=== PATIENT | male | born 1955 | race Caucasian/White ===

== ENCOUNTER 2018-06-25 08:26 | Emergency (ER) | payer BC, OTHER ==
[2018-06-25 08:47] LABS: BASOPHILS % (AUTO) 0.6 % (0.0-5.0); EOSINOPHILS % (AUTO) 5.3 % (0.0-8.0); LYMPHOCYTES % (AUTO) 26.5 % (21.0-51.0); MEAN CORPUSCULAR HEMOGLOBIN 31.4 pg (27.0-33.0); MEAN CORPUSCULAR HGB CONC 34.8 g/dL (32.0-36.0); MEAN CORPUSCULAR VOLUME 90.2 fL (79-99); NEUTROPHILS % (AUTO) 57.6 % (40.0-77.0); PLATELET COUNT (AUTO) 208 K/uL (130-400); RED BLOOD CELL COUNT(AUTO) 4.66 MIL/uL (4.50-6.20); WHITE BLOOD COUNT (AUTO) 6.1 K/uL (4.8-10.8)
[2018-06-25 08:59] LABS: CREATININE 0.8 mg/dL (0.5-1.5)
[2018-06-25 09:05] LABS: ALBUMIN 3.3 g/dL (3.5-5.0); BILIRUBIN,TOTAL 0.3 mg/dL (0.2-1.0); TOTAL PROTEIN, SERUM 6.9 g/dL (6.0-8.3)
[2018-06-25 09:10] LABS: INR 0.93 (0.85-1.15); PARTIAL THROMBOPLASTIN TIME 28.5 SEC (26.3-35.5); PROTHROMBIN TIME 9.8 SEC (9.6-11.6)
[2018-06-25 09:44] LABS: BILIRUBIN,URINE Negative (NEGATIVE); COLOR,URINE Yellow (YELLOW); GLUCOSE, URINE (UA) Negative (NEGATIVE); KETONES,URINE Negative (NEGATIVE); LEUKOCYTE ESTERASE ,URINE Trace (NEGATIVE); NITRATE,URINE Negative (NEGATIVE); OCCULT BLOOD,URINE Negative (NEGATIVE); PH,URINE 6.5 (5.0-8.0); PROTEIN,URINE Negative (NEGATIVE); UROBILINOGEN,URINE 0.2 mg/dL (0.2-1.0)
[2018-06-25] MEDS ORDERED: CYCLOBENZAPRINE HCL 10 MG TABLET ONE (09:45)
[2018-06-25 09:46] LABS: APPEARANCE,URINE CLEAR (CLEAR)
[2018-06-25 09:59] LABS: BACTERIA,URINE Rare /HPF (None Seen); RBC,URINE 0-1 /HPF (0-1); SQUAMOUS EPITHELIAL CELL,UR Rare /HPF (0-2); WBC,URINE 0-1 /HPF (0-1)
== END 2018-06-25 10:58 | disposition home or self-care (01) ==
LOC: EDH 08:26
DX: M25.531 Pain in right wrist (principal); I10 Essential (primary) hypertension; J45.909 Unspecified asthma, uncomplicated; Z88.0 Allergy status to penicillin; Z88.8 Allergy status to other drugs, medicaments and biological substances; Z87.891 Personal history of nicotine dependence
CPT/HCPCS: 29125; 36415; 71045; 73110; 80053; 81001; 82550; 84484; 85025; 85610; 85730; 93005

== ENCOUNTER 2019-04-09 09:03 | Emergency (ER) | payer OTHER ==
[2019-04-09 10:23] LABS: RAPID GROUP A STREP NEGATIVE (NEGATIVE)
[2019-04-09 10:27] LABS: BASOPHILS % (AUTO) 0.8 % (0.0-5.0); EOSINOPHILS % (AUTO) 5.7 % (0.0-8.0); HEMATOCRIT 44.7 % (42-54); LYMPHOCYTES % (AUTO) 25.5 % (21.0-51.0); MEAN CORPUSCULAR HEMOGLOBIN 29.8 pg (27.0-33.0); MEAN CORPUSCULAR HGB CONC 33.1 g/dL (32.0-36.0); MEAN CORPUSCULAR VOLUME 90.1 fL (79-99); MONOCYTES % (AUTO) 16.4 % (3.0-13.0); NEUTROPHILS % (AUTO) 51.4 % (40.0-77.0); PLATELET COUNT (AUTO) 201 K/uL (130-400); RED BLOOD CELL COUNT(AUTO) 4.96 MIL/uL (4.50-6.20); RED CELL DISTRIBUTION WIDTH 14.2 % (11.0-15.5); WHITE BLOOD COUNT (AUTO) 4.9 K/uL (4.8-10.8)
[2019-04-09 10:32] LABS: CREATININE 0.9 mg/dL (0.5-1.5); POTASSIUM 3.7 mmol/L (3.5-5.1)
[2019-04-09 11:42] LABS: BASOPHILS % (MANUAL) 2 % (0-2); EOSINOPHILS % (MANUAL) 7 % (1-6); LYMPHOCYTES % (MANUAL) 16 % (22-44); MAN.DIFF COMMENT-IMPRESSION MANUAL DIFFERENTIAL; MONOCYTES % (MANUAL) 12 % (2-9); PLATELET MORPHOLOGY COMMENT ADEQUATE; REACTIVE LYMPHOCYTES 16 % (0-0); SEGMENTED NEUTROPHILS % 47 % (40-70)
[2019-04-09] MEDS ORDERED: ONDANSETRON HCL 4 MG/2 ML VIAL IVP PRN (12:15)
[2019-04-09] MEDS ORDERED: SODIUM CHLORIDE 0.9% 1000ML 1,000 ML IV SCH (12:15)
[2019-04-09] MEDS ORDERED: COMPOUND PO MISCELLANEOUS 1 EACH MISC MISC PRN (12:15)
[2019-04-09] MEDS ORDERED: MAG HYDROX/AL HYDROX/SIMETH 30 ML, LIDOCAINE HCL 2% VISCOUS 30 ML, DIPHENHYDRAMINE HCL ... PO PRN ×3 (12:15)
== END 2019-04-09 11:11 | disposition home or self-care (01) ==
LOC: EDH 09:03
DX: J21.8 Acute bronchiolitis due to other specified organisms (principal); J45.909 Unspecified asthma, uncomplicated; I10 Essential (primary) hypertension; Z88.0 Allergy status to penicillin; Z88.8 Allergy status to other drugs, medicaments and biological substances; Z87.891 Personal history of nicotine dependence; Z79.899 Other long term (current) drug therapy; Z79.82 Long term (current) use of aspirin
CPT/HCPCS: 36415; 71046; 80048; 85025; 87804; 87880

== ENCOUNTER 2019-09-26 06:01 | Emergency (ER) | payer OTHER ==
[2019-09-26] MEDS ORDERED: ONDANSETRON HCL 4 MG/2 ML VIAL ONE (06:13)
[2019-09-26] MEDS ORDERED: SODIUM CHLORIDE 0.9% 1000ML 1,000 ML IV ONE (06:14)
[2019-09-26] MEDS ORDERED: FAMOTIDINE/PF 20 MG/2 ML VIAL IV ONE (06:14)
[2019-09-26] MEDS ORDERED: IOHEXOL-350 75 ML VIAL IV ONE (06:43)
== END 2019-09-26 08:00 | disposition home or self-care (01) ==
LOC: EDH 06:01
DX: K62.5 Hemorrhage of anus and rectum (principal); I10 Essential (primary) hypertension; R11.2 Nausea with vomiting, unspecified; R10.13 Epigastric pain; R10.11 Right upper quadrant pain; J45.909 Unspecified asthma, uncomplicated; Z88.0 Allergy status to penicillin; Z91.030 Bee allergy status
CPT/HCPCS: 36415; 71045; 74177; 80053; 81003; 82270; 82550; 83605; 83690; 84484; 85025; 85610; 85730; 86850; 86900; 86901; 93005; 96361; 96374; 96375; 99285; J2405; J3490; J7030; Q9967

== ENCOUNTER 2020-06-16 10:14 | Emergency (ER) | payer OTHER ==
[2020-06-16] MEDS ORDERED: KETOROLAC 30MG VIAL (30MG/ML) ONE (10:42)
[2020-06-16] MEDS ORDERED: ORPHENADRINE CITRATE 30 MG/ML ML ONE (10:42)
[2020-12-02] MEDS ORDERED: CYCL10TA16 PO (12:53)
== END 2020-06-16 11:26 | disposition home or self-care (01) ==
LOC: EDH 10:14
DX: S39.012A Strain of muscle, fascia and tendon of lower back, initial encounter (principal); S46.912A Strain of unspecified muscle, fascia and tendon at shoulder and upper arm level, left arm, initial encounter; J45.909 Unspecified asthma, uncomplicated; I10 Essential (primary) hypertension; Z88.0 Allergy status to penicillin; Z91.030 Bee allergy status; Z88.8 Allergy status to other drugs, medicaments and biological substances; X58.XXXA Exposure to other specified factors, initial encounter; Y93.I9 Activity, other involving external motion; Y92.810 Car as the place of occurrence of the external cause; Y99.8 Other external cause status
CPT/HCPCS: 72100; 73030; 96372 ×2; 99284; J1885; J2360

== ENCOUNTER 2020-08-11 14:14 | Emergency (ER) | payer OTHER ==
[2020-08-11] MEDS ORDERED: 0.9% NACL 500ML IV.SOLN 500 ML IV ONE (15:08)
[2020-08-11] MEDS ORDERED: KETOROLAC 30MG VIAL (30MG/ML) ONE (15:08)
[2020-08-11 15:25] LABS: APPEARANCE,URINE Clear (CLEAR); BILIRUBIN,URINE Negative (NEGATIVE); COLOR,URINE Yellow (YELLOW); GLUCOSE, URINE (UA) Negative (NEGATIVE); KETONES,URINE Negative (NEGATIVE); LEUKOCYTE ESTERASE ,URINE Trace (NEGATIVE); NITRATE,URINE Negative (NEGATIVE); OCCULT BLOOD,URINE Negative (NEGATIVE); PH,URINE 6.5 (5.0-8.0); PROTEIN,URINE Negative (NEGATIVE); UROBILINOGEN,URINE 0.2 mg/dL (0.2-1.0)
[2020-08-11 15:30] LABS: BASOPHILS % (AUTO) 0.9 % (0.0-5.0); EOSINOPHILS % (AUTO) 6.7 % (0.0-8.0); HEMATOCRIT 43.2 % (42-54); LYMPHOCYTES % (AUTO) 30.3 % (21.0-51.0); MEAN CORPUSCULAR HEMOGLOBIN 29.8 pg (27.0-33.0); MEAN CORPUSCULAR HGB CONC 32.6 g/dL (32.0-36.0); MEAN CORPUSCULAR VOLUME 91.3 fL (79-99); MONOCYTES % (AUTO) 13.1 % (3.0-13.0); NEUTROPHILS % (AUTO) 48.8 % (40.0-77.0); PLATELET COUNT (AUTO) 222 K/uL (130-400); RED BLOOD CELL COUNT(AUTO) 4.73 MIL/uL (4.50-6.20); RED CELL DISTRIBUTION WIDTH 13.7 % (11.0-15.5); WHITE BLOOD COUNT (AUTO) 6.6 K/uL (4.8-10.8)
[2020-08-11 15:40] LABS: BACTERIA,URINE Rare /HPF (None Seen); RBC,URINE 0-1 /HPF (0-1); SQUAMOUS EPITHELIAL CELL,UR Rare /HPF (0-2)
[2020-08-11 15:40] LABS: INR 0.96 (0.85-1.15); PROTHROMBIN TIME 10.5 SEC (9.6-11.6)
[2020-08-11 15:41] LABS: PARTIAL THROMBOPLASTIN TIME 26.3 SEC (26.3-35.5)
[2020-08-11 15:43] LABS: ALBUMIN 3.4 g/dL (3.5-5.0); BILIRUBIN,TOTAL 0.5 mg/dL (0.2-1.0); POTASSIUM 4.1 mmol/L (3.5-5.1); TOTAL PROTEIN, SERUM 6.8 g/dL (6.0-8.3)
[2020-08-11] MEDS ORDERED: HYDROCODONE/ACETAMINOPHEN 5/325 MG TAB ONE (15:59)
[2020-12-02] MEDS ORDERED: CYCL10TA16 PO (12:53)
== END 2020-08-11 16:33 | disposition home or self-care (01) ==
LOC: EDH 14:14
DX: S39.011A Strain of muscle, fascia and tendon of abdomen, initial encounter (principal); S39.012A Strain of muscle, fascia and tendon of lower back, initial encounter; I10 Essential (primary) hypertension; J45.909 Unspecified asthma, uncomplicated; Z91.030 Bee allergy status; Z88.8 Allergy status to other drugs, medicaments and biological substances; Z88.0 Allergy status to penicillin; X58.XXXA Exposure to other specified factors, initial encounter; Y93.89 Activity, other specified; Y92.89 Other specified places as the place of occurrence of the external cause; Y99.8 Other external cause status
CPT/HCPCS: 36415; 74176; 80053; 81001; 83690; 84484; 85025; 85610; 85730; 93005; 96361; 96374; 99285; J1885; J7040

== ENCOUNTER 2020-10-14 10:21 | Emergency (ER) | payer OTHER ==
[~2020-10-14] VITALS: Ht 180.3 cm; Wt 131.1 kg
[2020-10-14 10:23] VITALS: BP 134/68
[2020-10-14] MEDS ORDERED: ONDANSETRON 4MG INJ IVP SCH (11:00)
[2020-10-14] MEDS ORDERED: KETOROLAC 30MG VIAL (30MG/ML) IVP SCH (11:00)
[2020-10-14 11:04] LABS: BASOPHILS % (AUTO) 0.8 % (0.0-5.0); EOSINOPHILS % (AUTO) 6.4 % (0.0-8.0); HEMATOCRIT 40.2 % (42-54); LYMPHOCYTES % (AUTO) 19.3 % (21.0-51.0); MEAN CORPUSCULAR HGB CONC 33.6 g/dL (32.0-36.0); MEAN CORPUSCULAR VOLUME 92.2 fL (79-99); MONOCYTES % (AUTO) 8.5 % (3.0-13.0); NEUTROPHILS % (AUTO) 64.5 % (40.0-77.0); PLATELET COUNT (AUTO) 200 K/uL (130-400); RED BLOOD CELL COUNT(AUTO) 4.36 MIL/uL (4.50-6.20); RED CELL DISTRIBUTION WIDTH 14.2 % (11.0-15.5); WHITE BLOOD COUNT (AUTO) 7.5 K/uL (4.8-10.8)
[2020-10-14 11:15] LABS: CREATININE 0.9 mg/dL (0.5-1.5); POTASSIUM 4.5 mmol/L (3.5-5.1)
[2020-10-14 11:19] LABS: ALBUMIN 3.3 g/dL (3.5-5.0); BILIRUBIN,TOTAL 0.3 mg/dL (0.2-1.0); TOTAL PROTEIN, SERUM 6.8 g/dL (6.0-8.3)
[2020-10-14 11:36] VITALS: BP 121/67
[2020-10-14 11:53] LABS: APPEARANCE,URINE Clear (CLEAR); BILIRUBIN,URINE Negative (NEGATIVE); COLOR,URINE Yellow (YELLOW); GLUCOSE, URINE (UA) Negative (NEGATIVE); KETONES,URINE Negative (NEGATIVE); LEUKOCYTE ESTERASE ,URINE Small (NEGATIVE); NITRATE,URINE Negative (NEGATIVE); OCCULT BLOOD,URINE Negative (NEGATIVE); PH,URINE 5.5 (5.0-8.0); PROTEIN,URINE Negative (NEGATIVE); UROBILINOGEN,URINE 0.2 mg/dL (0.2-1.0)
[2020-10-14 12:05] LABS: BACTERIA,URINE Rare /HPF (None Seen); RBC,URINE 0-1 /HPF (0-1); SQUAMOUS EPITHELIAL CELL,UR Rare /HPF (0-2)
[2020-10-14] MEDS ORDERED: DICY20TA2 PO (13:59)
[2020-10-14] MEDS ORDERED: ONDA4TAB4 PO (13:59)
[2020-10-14 14:07] VITALS: BP 121/67
== END 2020-10-14 14:24 | disposition home or self-care (01) ==
LOC: EDH 10:21
DX: R10.31 Right lower quadrant pain (principal); R11.2 Nausea with vomiting, unspecified; I10 Essential (primary) hypertension; J45.909 Unspecified asthma, uncomplicated; Z88.0 Allergy status to penicillin; Z91.030 Bee allergy status; Z79.899 Other long term (current) drug therapy
CPT/HCPCS: 36415; 74176; 76705; 80053; 81001; 82150; 83690; 85025; 87088; 96374; 96375; 99285; J1885; J2405

== ENCOUNTER 2020-11-20 16:02 | Emergency (ER) | payer OTHER ==
[~2020-11-20] VITALS: Ht 177.8 cm; Wt 129.3 kg
[~2020-11-20 16:02] MED LIST: DICY20TA2 PO; ONDA4TAB4 PO
[2020-11-20 18:13] VITALS: BP 145/74
[2020-11-20] MEDS ORDERED: ONDANSETRON 4MG INJ IVP ONE (19:00)
[2020-11-20] MEDS ORDERED: MORPHINE 2 MG SYG IVP ONE (19:00)
[2020-11-20 19:07] VITALS: BP 105/51
[2020-11-20 19:10] LABS: APPEARANCE,URINE Clear (CLEAR); BILIRUBIN,URINE Negative (NEGATIVE); COLOR,URINE Dark Yellow (YELLOW); GLUCOSE, URINE (UA) Negative (NEGATIVE); KETONES,URINE Trace mg/dL (NEGATIVE); LEUKOCYTE ESTERASE ,URINE Negative (NEGATIVE); NITRATE,URINE Negative (NEGATIVE); OCCULT BLOOD,URINE Negative (NEGATIVE); PROTEIN,URINE Negative (NEGATIVE)
[2020-11-20 19:50] LABS: BASOPHILS % (AUTO) 0.7 % (0.0-5.0); EOSINOPHILS % (AUTO) 5.6 % (0.0-8.0); HEMATOCRIT 41.3 % (42-54); LYMPHOCYTES % (AUTO) 25.6 % (21.0-51.0); MEAN CORPUSCULAR HEMOGLOBIN 30.6 pg (27.0-33.0); MEAN CORPUSCULAR HGB CONC 33.4 g/dL (32.0-36.0); MEAN CORPUSCULAR VOLUME 91.6 fL (79-99); MONOCYTES % (AUTO) 9.4 % (3.0-13.0); NEUTROPHILS % (AUTO) 57.9 % (40.0-77.0); PLATELET COUNT (AUTO) 228 K/uL (130-400); RED BLOOD CELL COUNT(AUTO) 4.51 MIL/uL (4.50-6.20); RED CELL DISTRIBUTION WIDTH 14.6 % (11.0-15.5)
[2020-11-20 20:08] LABS: CARBON DIOXIDE 28 mmol/L (21-32); CHLORIDE 105 mmol/L (101-111); GLOMERULAR FILTR. RATE CALC 80 mL/min (>60); GLUCOSE,RANDOM 92 mg/dL (70-105); SODIUM SERUM 142 mmol/L (136-145); UREA NITROGEN, BLOOD 22 mg/dL (7-18)
[2020-11-20 20:12] LABS: ALANINE AMINOTRANSFERASE 36 U/L (12-78); ALBUMIN 3.4 g/dL (3.5-5.0); AMYLASE 33 U/L (25-115); ASPARTATE AMINOTRANSFERASE 21 U/L (10-37); BILIRUBIN,TOTAL 0.6 mg/dL (0.2-1.0); CREATINE KINASE, TOTAL 149 U/L (21-232); TOTAL PROTEIN, SERUM 6.5 g/dL (6.0-8.3)
[2020-11-20 20:14] LABS: LIPASE < 50 U/L (114-286)
[2020-11-20 20:48] VITALS: BP 104/41
== END 2020-11-20 21:06 | disposition home or self-care (01) ==
LOC: EDH 16:02
DX: K40.90 Unilateral inguinal hernia, without obstruction or gangrene, not specified as recurrent (principal); R20.2 Paresthesia of skin; M54.9 Dorsalgia, unspecified; E78.00 Pure hypercholesterolemia, unspecified; I10 Essential (primary) hypertension; Z88.0 Allergy status to penicillin; Z79.899 Other long term (current) drug therapy
CPT/HCPCS: 36415; 74176; 80053; 81003; 82150; 82550; 83690; 84484; 85025; 93005; 93925; 93970; 96374; 96375; 99285; J2405

== ENCOUNTER 2020-12-02 12:08 | Emergency (ER) | payer OTHER ==
[~2020-12-02] VITALS: Ht 180.3 cm; Wt 127.5 kg
[2020-12-02] MEDS ORDERED: CYCL10 PO (12:53)
[2020-12-02] MEDS ORDERED: NAPR-1180 PO (12:53)
[2020-12-02] MEDS ORDERED: DIAZEPAM 5 MG TABLET PO ONE (13:00)
[2020-12-02 13:29] VITALS: BP 146/84
== END 2020-12-02 13:33 | disposition home or self-care (01) ==
LOC: EDH 12:08
DX: M54.42 Lumbago with sciatica, left side (principal); M54.41 Lumbago with sciatica, right side; R20.0 Anesthesia of skin; I10 Essential (primary) hypertension; E78.00 Pure hypercholesterolemia, unspecified; J45.909 Unspecified asthma, uncomplicated; Z98.890 Other specified postprocedural states; Z79.899 Other long term (current) drug therapy; Z88.0 Allergy status to penicillin; Z88.5 Allergy status to narcotic agent; Z91.030 Bee allergy status

== ENCOUNTER 2021-05-06 21:25 | Emergency (ER) | payer MEDICARE, OTHER ==
[~2021-05-06] VITALS: Ht 180.3 cm; Wt 88.0 kg
[2021-05-06] MEDS: KETOROLAC 30MG VIAL (30MG/ML) IV ONE
[~2021-05-06 21:25] MED LIST changes: +CYCL10TA16 PO; +NAPR-1180 PO
[2021-05-06 21:51] LABS: BASOPHILS % (AUTO) 0.8 % (0.0-5.0); EOSINOPHILS % (AUTO) 13.3 % (0.0-8.0); HEMATOCRIT 42.6 % (42-54); LYMPHOCYTES % (AUTO) 22.9 % (21.0-51.0); MEAN CORPUSCULAR HEMOGLOBIN 30.4 pg (27.0-33.0); MEAN CORPUSCULAR HGB CONC 33.8 g/dL (32.0-36.0); MEAN CORPUSCULAR VOLUME 89.9 fL (79-99); MONOCYTES % (AUTO) 9.4 % (3.0-13.0); NEUTROPHILS % (AUTO) 53.1 % (40.0-77.0); PLATELET COUNT (AUTO) 207 K/uL (130-400); RED BLOOD CELL COUNT(AUTO) 4.74 MIL/uL (4.50-6.20); RED CELL DISTRIBUTION WIDTH 13.7 % (11.0-15.5); WHITE BLOOD COUNT (AUTO) 9.6 K/uL (4.8-10.8)
[2021-05-06 22:00] LABS: POTASSIUM 3.9 mmol/L (3.5-5.1)
[2021-05-06 22:05] LABS: ALBUMIN 3.3 g/dL (3.5-5.0); BILIRUBIN,TOTAL 0.3 mg/dL (0.2-1.0); TOTAL PROTEIN, SERUM 6.9 g/dL (6.0-8.3)
[2021-05-07] MEDS: KETOROLAC 30MG VIAL (30MG/ML) ONE (00:19)
[2021-05-07 03:00] VITALS: BP 119/83
== END 2021-05-07 03:10 | disposition home or self-care (01) ==
LOC: EDH 21:25
DX: R07.89 Other chest pain (principal); R06.02 Shortness of breath; R11.0 Nausea; Z88.0 Allergy status to penicillin; I10 Essential (primary) hypertension; J44.9 Chronic obstructive pulmonary disease, unspecified; G47.30 Sleep apnea, unspecified; Z79.1 Long term (current) use of non-steroidal anti-inflammatories (NSAID); Z79.899 Other long term (current) drug therapy
CPT/HCPCS: 36415; 71045; 80053; 84484 ×2; 85025; 93005; 96374; 99285; J1885

== ENCOUNTER 2024-01-04 10:06 | Inpatient (IN) | payer MEDICARE ==
[~2024-01-04] VITALS: Ht 180.3 cm; Wt 128.4 kg
[2024-01-04 10:55] LABS: RAPID GROUP A STREP negative (NEGATIVE)
[2024-01-04 11:05] LABS: INFLUENZA TYPE A Negative For Type A (NEGATIVE); INFLUENZA TYPE B Negative For Type B (NEGATIVE)
[2024-01-04 11:07] LABS: COVID19 (SARS ANTIGEN RAPID) POSITIVE FOR SARS AG (NEGATIVE)
[2024-01-04 12:11] LABS: BASOPHILS # (AUTO) 0.04 K/uL (0.00-0.20); BASOPHILS % (AUTO) 0.6 % (0.0-5.0); EOSINOPHILS # (AUTO) 0.02 K/uL (0.00-0.70); EOSINOPHILS % (AUTO) 0.3 % (0.0-8.0); HEMATOCRIT 43.3 % (42-54); IMMATURE GRANULOCYTE ABSOLUTE 0.06 K/uL (0-1); LYMPHOCYTES # (AUTO) 1.2 K/uL (1.0-4.8); LYMPHOCYTES % (AUTO) 17.3 % (21.0-51.0); MEAN CORPUSCULAR HEMOGLOBIN 31.1 pg (27.0-33.0); MEAN CORPUSCULAR HGB CONC 33.7 g/dL (32.0-36.0); MEAN CORPUSCULAR VOLUME 92.1 fL (79-99); MONOCYTES % (AUTO) 14.3 % (3.0-13.0); NEUTROPHILS # (AUTO) 4.7 K/uL (1.8-7.7); NEUTROPHILS % (AUTO) 66.7 % (40.0-77.0); PLATELET COUNT (AUTO) 190 K/uL (130-400); RED CELL DISTRIBUTION WIDTH 15.1 % (11.0-15.5); WHITE BLOOD COUNT (AUTO) 7.1 K/uL (4.8-10.8)
[2024-01-04 12:19] LABS: CREATININE 1.6 mg/dL (0.5-1.3); POTASSIUM 3.1 mmol/L (3.5-5.1)
[2024-01-04 12:42] LABS: B-TYPE NATRIURETIC PEPTIDE 65 pg/mL (0-100)
[2024-01-04] MEDS: PoTASSium BIcarbonate/CIT AC 25 MEQ TABLET.EFF PO STA (13:22)
[2024-01-05] VITALS (15 sets, daily range): BP systolic 100–132; BP diastolic 60–79; PULSE 50–97; RESP 18–21; TEMP 97.6–98.7; O2SAT 95–98
[2024-01-05] MEDS ORDERED: PoTASSium chl 10% ELIXIR 20MEQ 20 MEQ/15 ML UDCUP PO PRN
[2024-01-05] MEDS ORDERED: MAGNESIUM 2GM PREMIX 50ML 50 ML IV PRN
[2024-01-05] MEDS ORDERED: ondanSETRON 4MG INJ IV PRN
[2024-01-05] MEDS ORDERED: PoTASSium chloRIDE 20MEQ/100ML 100 ML IV PRN
[2024-01-05] MEDS: 0.9%NACL 1000ML 1,000 ML IV SCH (00:18)
[2024-01-05] MEDS: IpraTROPium/alBUTERol SULFATE 3 ML SOLUTION IH SCH (02:15)
[2024-01-05 06:46] LABS: BASOPHILS # (AUTO) 0.03 K/uL (0.00-0.20); BASOPHILS % (AUTO) 0.6 % (0.0-5.0); EOSINOPHILS # (AUTO) 0.14 K/uL (0.00-0.70); EOSINOPHILS % (AUTO) 2.9 % (0.0-8.0); HEMATOCRIT 42.6 % (42-54); IMMATURE GRANULOCYTE ABSOLUTE 0.03 K/uL (0-1); LYMPHOCYTES # (AUTO) 1.1 K/uL (1.0-4.8); LYMPHOCYTES % (AUTO) 23.6 % (21.0-51.0); MEAN CORPUSCULAR HEMOGLOBIN 31.6 pg (27.0-33.0); MEAN CORPUSCULAR HGB CONC 32.9 g/dL (32.0-36.0); MEAN CORPUSCULAR VOLUME 96.2 fL (79-99); MONOCYTES # (AUTO) 0.7 K/uL (0.1-1.0); MONOCYTES % (AUTO) 15.3 % (3.0-13.0); NEUTROPHILS # (AUTO) 2.8 K/uL (1.8-7.7); PLATELET COUNT (AUTO) 163 K/uL (130-400); RED BLOOD CELL COUNT(AUTO) 4.43 MIL/uL (4.50-6.20); RED CELL DISTRIBUTION WIDTH 15.3 % (11.0-15.5); WHITE BLOOD COUNT (AUTO) 4.8 K/uL (4.8-10.8)
[2024-01-05] MEDS ORDERED: DICYCLOMINE HCL 20 MG TAB PO PRN (08:30)
[2024-01-05] MEDS ORDERED: ondanSETRON 4MG TABLET PO PRN (08:30)
[2024-01-05 09:29] LABS: ALBUMIN 2.5 g/dL (3.5-5.0); BILIRUBIN,TOTAL 0.5 mg/dL (0.2-1.0); CREATININE 1.2 mg/dL (0.5-1.3); POTASSIUM 3.5 mmol/L (3.5-5.1); TOTAL PROTEIN, SERUM 6.1 g/dL (6.0-8.3)
[2024-01-05 12:27] LABS: ABG BASE EXCESS -1.2 mmol/L (-2.0-3.0); ABG HCO3 22.7 mmol/L (21.0-28.0); ABG OXYGEN SATURATION 96.1 % (94.0-98.0); ABG PCO2 36 mmHg (35-48); ABG PH 7.419 (7.350-7.450); DEVICE COMMENT RUTH RN LR; PO2, ARTERIAL BG 80.5 mmHg (83.0-108.0); VENT MODE, BG 2L NC (ROOM AIR)
[2024-01-05] MEDS: NAPROXEN 500 MG TABLET PO SCH (12:36)
[2024-01-05] MEDS: DOXYCYCLINE 100MG+NS 250ML IV SCH (12:36)
[2024-01-05] MEDS: dexaMETHasone SOD PHOSPHATE 4 MG/ML 1ML VIAL IVP SCH (13:12)
[2024-01-05] MEDS: CYCLOBENZAPRINE HCL 10 MG TABLET PO SCH (18:29)
[2024-01-05] MEDS ORDERED: DULO60CA64 PO (18:36)
[2024-01-05] MEDS ORDERED: SACU1TAB4 PO (18:38)
[2024-01-05] MEDS ORDERED: RANO500T6 PO (18:38)
[2024-01-05] MEDS ORDERED: ATOR-2 PO (18:44)
[2024-01-05] MEDS ORDERED: METO-408 PO (18:44)
[2024-01-05] MEDS ORDERED: BUSP10TA3 PO (18:44)
[2024-01-05] MEDS ORDERED: SPIR25TA6 PO (18:44)
[2024-01-05] MEDS ORDERED: ASPI-1197 PO (18:44)
[2024-01-05] MEDS ORDERED: EMPA10TA PO (18:44)
[2024-01-05] MEDS ORDERED: ESOM20SU2 PO (18:44)
[2024-01-05] MEDS: FAMOTIDINE 20MG VIAL IV SCH (20:07)
[2024-01-05] MEDS: PoTASSium chloRIDE 20MEQ ER 20 MEQ ERTAB PO ONE (20:07)
[2024-01-05] MEDS: BENZOCAINE/MENTH/CETYLPYRD CL 1 EACH LOZENGE MM PRN (23:21)
[2024-01-06] VITALS (14 sets, daily range): BP systolic 116–153; BP diastolic 57–80; PULSE 75–92; RESP 17–20; TEMP 97.4–98.9; O2SAT 94–100
[2024-01-06 06:02] LABS: HEMATOCRIT 40.5 % (42-54); IMMATURE GRANULOCYTE ABSOLUTE 0.01 K/uL (0-1); LYMPHOCYTES # (AUTO) 0.4 K/uL (1.0-4.8); LYMPHOCYTES % (AUTO) 11.9 % (21.0-51.0); MEAN CORPUSCULAR HEMOGLOBIN 31.3 pg (27.0-33.0); MEAN CORPUSCULAR HGB CONC 33.3 g/dL (32.0-36.0); MONOCYTES # (AUTO) 0.4 K/uL (0.1-1.0); MONOCYTES % (AUTO) 10.8 % (3.0-13.0); NEUTROPHILS # (AUTO) 2.7 K/uL (1.8-7.7); PLATELET COUNT (AUTO) 160 K/uL (130-400); RED BLOOD CELL COUNT(AUTO) 4.31 MIL/uL (4.50-6.20); RED CELL DISTRIBUTION WIDTH 14.9 % (11.0-15.5); WHITE BLOOD COUNT (AUTO) 3.5 K/uL (4.8-10.8)
[2024-01-06 06:39] LABS: HEMOGLOBIN A1C 5.4 % (4.0-6.0)
[2024-01-06 06:41] LABS: ALBUMIN 2.5 g/dL (3.5-5.0); BILIRUBIN,DIRECT 0.1 mg/dL (0.0-0.3); BILIRUBIN,TOTAL 0.4 mg/dL (0.2-1.0); MAGNESIUM 1.9 mg/dL (1.80-2.40); POTASSIUM 3.8 mmol/L (3.5-5.1); TOTAL PROTEIN, SERUM 5.9 g/dL (6.0-8.3)
[2024-01-06] MEDS ORDERED: IOHEXOL 350 MG/ML 100ML INFUS..BTL IV ONE (10:02)
[2024-01-06] MEDS: ENOXAPARIN SODIUM 40 MG/0.4 ML SYRINGE SQ SCH (13:36)
[2024-01-06] MEDS ORDERED: RANOLAZINE 500 MG TAB.SR.12H PO PRN (15:00)
[2024-01-06] MEDS ORDERED: RANOLAZINE 500 MG TAB.SR.12H PO SCH (15:30)
[2024-01-06] MEDS: SACUBITRIL/VALSARTAN 1 EACH TABLET PO SCH (19:39)
[2024-01-06] MEDS: busPIRone HCL 5 MG TABLET PO SCH (19:39)
[2024-01-07] VITALS (14 sets, daily range): BP systolic 125–135; BP diastolic 65–75; PULSE 53–85; RESP 17–20; TEMP 97.5–98.7; O2SAT 93–96
[2024-01-07 04:49] LABS: ALBUMIN 2.6 g/dL (3.5-5.0); BILIRUBIN,TOTAL 0.5 mg/dL (0.2-1.0); POTASSIUM 3.5 mmol/L (3.5-5.1); TOTAL PROTEIN, SERUM 5.9 g/dL (6.0-8.3)
[2024-01-07] MEDS: duloXETine HCL 30 MG CAP PO SCH (08:31)
[2024-01-07] MEDS: SPIRONOLACTONE 25 MG TAB PO SCH (08:33)
[2024-01-07] MEDS: ASPIRIN 81MG CHEW TAB PO SCH (08:33)
[2024-01-07] MEDS: atorVAStatin 40 MG TABLET PO SCH (08:33)
[2024-01-07] MEDS: PANTOPrazole 40 MG TAB DR PO SCH (08:33)
[2024-01-07] MEDS: metOPROLol sucCINATE 25 MG TAB.SR.24H PO SCH (08:33)
[2024-01-07] MEDS: PoTASSium chloRIDE 20MEQ ER 20 MEQ ERTAB PO PRN (08:52)
[2024-01-07] MEDS: PoTASSium chloRIDE 20MEQ ER 20 MEQ ERTAB PO ONE (08:53)
[2024-01-08] VITALS (15 sets, daily range): BP systolic 121–139; BP diastolic 63–79; PULSE 70–97; RESP 18–20; TEMP 97.7–98.9; O2SAT 93–96
[2024-01-08 06:02] LABS: BASOPHILS # (AUTO) 0.01 K/uL (0.00-0.20); BASOPHILS % (AUTO) 0.1 % (0.0-5.0); IMMATURE GRANULOCYTE ABSOLUTE 0.05 K/uL (0-1); LYMPHOCYTES # (AUTO) 0.8 K/uL (1.0-4.8); LYMPHOCYTES % (AUTO) 9.4 % (21.0-51.0); MEAN CORPUSCULAR HEMOGLOBIN 31.1 pg (27.0-33.0); MEAN CORPUSCULAR HGB CONC 32.9 g/dL (32.0-36.0); MEAN CORPUSCULAR VOLUME 94.5 fL (79-99); MONOCYTES # (AUTO) 0.6 K/uL (0.1-1.0); MONOCYTES % (AUTO) 7.1 % (3.0-13.0); NEUTROPHILS # (AUTO) 6.8 K/uL (1.8-7.7); NEUTROPHILS % (AUTO) 82.8 % (40.0-77.0); PLATELET COUNT (AUTO) 180 K/uL (130-400); RED BLOOD CELL COUNT(AUTO) 4.02 MIL/uL (4.50-6.20); RED CELL DISTRIBUTION WIDTH 15.5 % (11.0-15.5); WHITE BLOOD COUNT (AUTO) 8.2 K/uL (4.8-10.8)
[2024-01-08 06:53] LABS: ALBUMIN 2.4 g/dL (3.5-5.0); BILIRUBIN,TOTAL 0.5 mg/dL (0.2-1.0); CREATININE 0.9 mg/dL (0.5-1.3); POTASSIUM 3.7 mmol/L (3.5-5.1); TOTAL PROTEIN, SERUM 5.8 g/dL (6.0-8.3)
[2024-01-09] VITALS (10 sets, daily range): BP systolic 119–136; BP diastolic 62–83; PULSE 68–97; RESP 18–19; TEMP 98.1–98.8; O2SAT 92–95
[2024-01-09 06:08] LABS: HEMATOCRIT 40.4 % (42-54); MEAN CORPUSCULAR HEMOGLOBIN 31.1 pg (27.0-33.0); MEAN CORPUSCULAR HGB CONC 32.9 g/dL (32.0-36.0); MEAN CORPUSCULAR VOLUME 94.4 fL (79-99); RED BLOOD CELL COUNT(AUTO) 4.28 MIL/uL (4.50-6.20); RED CELL DISTRIBUTION WIDTH 15.2 % (11.0-15.5); WHITE BLOOD COUNT (AUTO) 8.1 K/uL (4.8-10.8)
[2024-01-09 06:18] LABS: CREATININE 0.8 mg/dL (0.5-1.3); POTASSIUM 3.5 mmol/L (3.5-5.1)
== END 2024-01-09 15:45 | disposition home or self-care (01) | DRG 177 ==
LOC: EDH 10:06 → EDHIP 23:42 → OBSVTOIN 23:42 → 3AH 01-05 01:12
PROVIDERS: ADMIT Hospitalist; ATTEND Hospitalist
PROC: 5A09357 Assistance with Respiratory Ventilation, Less than 24 Consecutive Hours, Continuous Positive Airway Pressure (ICD-10-PCS; principal; 2024-01-07)
PROC: 5A09357 Assistance with Respiratory Ventilation, Less than 24 Consecutive Hours, Continuous Positive Airway Pressure (ICD-10-PCS; 2024-01-08)
PROC: 5A09357 Assistance with Respiratory Ventilation, Less than 24 Consecutive Hours, Continuous Positive Airway Pressure (ICD-10-PCS; 2024-01-09)
DX: U07.1 COVID-19 (principal); J12.82 Pneumonia due to coronavirus disease 2019; J96.01 Acute respiratory failure with hypoxia; N17.9 Acute kidney failure, unspecified; M62.82 Rhabdomyolysis; J45.901 Unspecified asthma with (acute) exacerbation; Z59.00 Homelessness unspecified; J44.0 Chronic obstructive pulmonary disease with (acute) lower respiratory infection; J98.11 Atelectasis; E87.6 Hypokalemia; I10 Essential (primary) hypertension; E78.5 Hyperlipidemia, unspecified; E66.01 Morbid (severe) obesity due to excess calories; J44.9 Chronic obstructive pulmonary disease, unspecified; G47.33 Obstructive sleep apnea (adult) (pediatric); I25.10 Atherosclerotic heart disease of native coronary artery without angina pectoris; Z88.0 Allergy status to penicillin; Z91.199 Patient's noncompliance with other medical treatment and regimen due to unspecified reason; Z88.8 Allergy status to other drugs, medicaments and biological substances; Z91.030 Bee allergy status; I25.2 Old myocardial infarction; Z68.39 Body mass index [BMI] 39.0-39.9, adult
CPT/HCPCS: 36415; 36600; 70450; 71045; 71270; 72192; 73562; 80048; 80053; 80076; 82550; 82803; 83036; 83615; 83735; 83880; 84145; 84484; 85025; 85027; 85378; 87426; 87804; 87880; 93005; 93306; 93356; 94640; 94660; 94664; G0378; J1100; J1650; J3490; Q9967

== ENCOUNTER 2024-12-24 09:11 | Emergency (ER) | payer MEDICARE ==
[~2024-12-24] VITALS: Ht 180.3 cm; Wt 136.5 kg
[~2024-12-24 09:11] MED LIST changes: +ASPI-1197 PO; +ATOR-2 PO; +BUSP10TA3 PO; +DULO60CA64 PO; +EMPA10TA PO; +ESOM20SU2 PO; +METO-408 PO; +RANO500T6 PO; +SACU1TAB4 PO; +SPIR25TA6 PO
--- NOTE | 2024-12-24 09:19 | ERN ---
General Chief Complaint: Dizzy/Light Headed Stated Complaint: DIZZINESS Time Seen by MD: 09:13 Source: patient History of Present Illness Initial Comments Patient is a 61-year-old male coming in with multiple complaints. Per patient he had a diarrheal episode and started feeling dizzy. He states he does have a cardiac history. Today he states that he had had dizziness two separate occasions. Allergies: Coded Allergies: Penicillins (Unverified Allergy, Severe, THROAT SWELLS, 10/14/20) bee pollen (Unverified Allergy, Unknown, 06/16/20) marijuana (Unverified Allergy, Unknown, 06/16/20) Home Meds Active Scripts Cyclobenzaprine HCl (Flexeril) 10 Mg Tab, 10 MG PO BIDAC, #60 TAB Prov:MARLON MONROY 12/02/20 Naproxen (Naprosyn) 500 Mg Tablet, 500 MG PO BIDPC, #60 TAB Prov:MARLON MONROY 12/02/20 Ondansetron HCl (Zofran) 4 Mg Tablet, 4 MG PO TID PRN for NAUSEA for 3 Days, #10 TAB Prov:FERNANDO QUIÑONES MD 10/14/20 Dicyclomine HCl (Bentyl) 20 Mg Tab, 20 MG PO TID PRN for ABDOMINAL PAIN for 7 Days, #21 TAB Prov:FERNANDO QUIÑONES MD 10/14/20 Reported Medications Aspirin (Aspirin) 81 Mg Tab.chew, 81 MG PO DAILY, TAB.CHEW 01/05/24 Esomeprazole Magnesium (Esomeprazole Magnesium) 20 Mg Suspdr.pkt, 20 MG PO DAILY 01/05/24 Atorvastatin Calcium (Atorvastatin Calcium) 80 Mg Tablet, 80 MG PO DAILY, TAB 01/05/24 Metoprolol Succinate (Metoprolol Succinate) 25 Mg Tab.er.24h, 25 MG PO DAILY, TAB 01/05/24 Spironolactone (Spironolactone) 25 Mg Tablet, 25 MG PO DAILY, TAB 01/05/24 Empagliflozin (Jardiance) 10 Mg Tablet, 10 MG PO DAILY, TAB 01/05/24 Buspirone HCl (Buspirone HCl) 10 Mg Tablet, 10 MG PO BID, TAB 01/05/24 Sacubitril/Valsartan (Entresto 97 mg-103 mg Tablet) 97 Mg-103 Mg Tablet, 1 EACH PO BID, TAB 01/05/24 Ranolazine (Ranolazine ER) 500 Mg Tab.er.12h, 500 MG PO [id number], TAB 01/05/24 Duloxetine HCl (Duloxetine HCl) 60 Mg Capsule.dr, 60 MG PO DAILY, CAP 01/05/24 Past Medical History Past Medical History: Asthma, COPD Medical History Other: SLEEP APNEA, CARDIAC HX Past Surgical History: None Surgical History Other: HERNIA, Social History Social History: Negative, Lives with family ROS Dictation CONSTITUTIONAL: No chills, no fever, weakness, no diaphoresis, no malaise. HEAD/FACE: No signs of trauma. EENT: No eye pain, no blurred vision, no tearing, no double vision, no ear pain, no ear discharge, no nose pain, no nasal congestion, no throat pain, no throat swelling, no mouth pain. RESPIRATORY: No cough, no orthopnea, no SOB, no stridor, no wheezing. CARDIOVASCULAR: No chest pain, no edema, no palpitations, no syncope. GASTROINTESTINAL/ABDOMINAL: No abdominal pain, no constipation, no diarrhea, no nausea, no vomiting. GENITOURINARY: No abnormal discharge, no dysuria, no frequent urination, no hematuria. No complaints of pain in the genitals. MUSCULOSKELETAL: No back pain, no gout, no joint pain, no joint swelling, no muscle pain, no muscle stiffness, no neck pain. INTEGUMENTARY: No change in color, no change in hair/nails, no dryness, no lesion, no lumps, no rash. NEUROLOGICAL/PSYCH: No anxiety, not depressed, no emotional problem, no headache, no numbness, no pre-existing deficit, no history of seizures, no tremors, no weakness. HEMATOLOGIC/LYMPHATIC: Not anemic, no history of blood clots, no apparent bleeding, no bruising, glands not swollen. All Systems Negative, Except as Noted. Physical Exam Physical Exam Dictation VITAL SIGNS: Reviewed. GENERAL APPEARANCE: Alert, oriented x3, no acute distress, obese. HEAD AND FACE: Non-traumatic. Maxillary sinus tenderness on palpation EYES: PERRL, pink conjunctivas, eyelid no trauma, anterior chamber clear. EARS: Pinnas intact and no signs of trauma or erythema. Ear canals clear and no discharge. TMs erythema. NOSE: No discharge, no bleeding. Bilateral nasal turbinate swelling OROPHARYNX: Mouth normal, teeth no caries, tongue pink. Pharynx clear, no erythema. Tonsils no exudates, no abscesses noted. Mucous membrane moist. NECK: Supple, non-tender, no thyromegaly, no masses, no JVD, no bruits. BREAST: Deferred. CHEST: No tenderness, no crepitus, no paradoxical movement, no retractions. LUNGS: Clear, well-ventilated, symmetric, no rales, no wheezing, no rhonchi, no stridor, good breath sounds bilaterally. HEART: Regular rate, regular rhythm, no murmur, no gallops. VASCULAR: No peripheral edema. ABDOMEN: Soft, positive bowel sounds, nondistended, no guarding, nontender, no rebound, no masses no hepatomegaly, no splenomegaly, no Bartholomew's sign, no hernias. RECTAL: Deferred. GENITAL: Deferred. NEUROLOGICAL: Normal speech, gross motor function intact, gross sensory function intact. MUSCULOSKELETAL: Neck nontender, full range of motion, back nontender, full range of motion. EXTREMITIES: Nontender, full range of motion. SKIN: Color pink, dry, no turgor, no rash, no lacerations, no abrasions, no contusions. LYMPHATICS: Deferred. Results Laboratory and Microbiology Lab and Micro Result Laboratory Tests Test 12/24/24 09:26 12/24/24 09:40 Urine Color LIGHT-YELLOW (YELLOW) Urine Appearance CLEAR (CLEAR) Urine pH 6.0 (5.0-8.0) Urine Specific [place] 1.019 (1.001-1.031) Urine Protein NEGATIVE mg/dL (NEGATIVE) Urine Glucose (UA) >=1000 mg/dL (NEGATIVE) H Urine Ketones NEGATIVE mg/dL (NEGATIVE) Urine Occult Blood MODERATE (NEGATIVE) H Urine Nitrate NEGATIVE (NEGATIVE) Urine Bilirubin NEGATIVE mg/dL (NEGATIVE) Urine Urobilinogen 0.2 mg/dL (0.2-1.0) Urine Leukocyte Esterase NEGATIVE Randa/uL Urine RBC 6-10 /HPF (0-1) H Urine WBC 2-5 /HPF (0-1) H Urine Squamous Epithelial Cells RARE /HPF (0-2) Urine Bacteria None /HPF (None Seen) White Blood Count 7.3 K/uL (4.8-10.8) Red Blood Count 4.92 MIL/uL (4.50-6.20) Hemoglobin 15.6 g/dL (14.0-18.0) Hematocrit 45.4 % (42-54) Mean Corpuscular Volume 92.3 fL (79-99) Mean Corpuscular Hemoglobin 31.7 pg (27.0-33.0) Mean Corpuscular Hemoglobin Concent 34.4 g/dL (32.0-36.0) Red Cell Distribution Width 14.6 % (11.0-15.5) Platelet Count 184 K/uL (130-400) Mean Platelet Volume 9.1 fL (7.5-10.5) Immature Granulocyte % (Auto) 0.7 % (0-1) Neutrophils (%) (Auto) 71.8 % (40.0-77.0) Lymphocytes (%) (Auto) 16.6 % (21.0-51.0) L Monocytes (%) (Auto) 8.7 % (3.0-13.0) Eosinophils (%) (Auto) 1.4 % (0.0-8.0) Basophils (%) (Auto) 0.8 % (0.0-5.0) Neutrophils # (Auto) 5.3 K/uL (1.8-7.7) Lymphocytes # (Auto) 1.2 K/uL (1.0-4.8) Monocytes # (Auto) 0.6 K/uL (0.1-1.0) Eosinophils # (Auto) 0.10 K/uL (0.00-0.70) Basophils # (Auto) 0.06 K/uL (0.00-0.20) Absolute Immature Granulocyte (auto 0.05 K/uL (0-1) Nucleated Red Blood Cells 0.0 % (0.0-0.19) Sodium Level 137 mmol/L (136-145) Potassium Level 3.6 mmol/L (3.5-5.1) Chloride Level 102 mmol/L (101-111) Carbon Dioxide Level 28 mmol/L (21-32) Blood Urea Nitrogen 22 mg/dL (7-18) H Creatinine 1.0 mg/dL (0.5-1.3) Glomerular Filtration Rate Calc 82 mL/min (>90) Random Glucose 125 mg/dL (70-105) H Total Calcium 8.9 mg/dL (8.5-10.1) Magnesium Level 1.80 mg/dL (1.80-2.40) Total Creatine Kinase 391 U/L (21-232) #H Troponin I High Sensitivity 20 ng/L (4-75) Influenza Type A Antigen Negative For Type A Influenza Type B Antigen Negative For Type B SARS-CoV-2, RNA, NAAT NEGATIVE SARS CoV-2 Labs Reviewed?: Yes EKG/XRAY/US/CT/MRI EKG Comment 12/24/2024 time 9:35 a.m. Ventricular rate 81 Sinus rhythm PA [address] wave elevation or depression MDM MDM: Differential diagnosis: Sinusitis, dehydration, ACS, Rationale: Tests considered and ordered secondary to shared decision making include: Previous outside records reviewed: Old ER visits. Risk of complication and/or morbidity or mortality of patient management: None Medications-Per medication reconciliation Need for hospitalization: Patient does not meet criteria for hospitalization. Need for emergency major/minor surgery: No Patient is a 69-year-old gentleman coming in complaining of dizziness and weakness. A Long with this patient also states that he has had mild chest pressure so cardiac workup needed to be performed. Laboratory workup negative for acute findings. On physical exam bilateral tympanic membrane erythema with the nasal turbinate swelling bilaterally as well as oropharyngeal erythema. Based on these findings patient diagnosis will be sinusitis. THROUGHOUT ER VISIT PATIENT HAS BEEN STABLE NO CHEST DISCOMFORT REPORTED. Patient will be discharged in stable condition I did advised him appropriate follow up with PCP. ED Course Orders Procedure Category Date Status Time Cbc With Differential LAB 12/24/24 Complete 09:13 Chest 1vw RAD 12/24/24 Resulted 09:13 12 Lead Ekg Tracing- EKG 12/24/24 Complete Technical 09:13 Magnesium LAB 12/24/24 Complete 09:13 Creatine Kinase, Total LAB 12/24/24 Complete 09:13 Troponin I High LAB 12/24/24 Complete Sensitivity 09:13 Urinalysis Profile LAB 12/24/24 Complete 09:13 Basic Metabolic Panel LAB 12/24/24 Complete 09:13 Covid Rna Naat LAB 12/24/24 Complete 09:13 Influenza Type A & B, LAB 12/24/24 Complete Rapid 09:13 0.9%Nacl 1000ml (Ns PHA 12/24/24 Complete 1000ml) 10:30 Dexamethasone 4mg/Ml PHA 12/24/24 Logged 1ml Vial (Dexametha 11:30 Current Medications Medications (Trade) Dose Ordered Sig/Shavonne Route PRN Reason Start Time Stop Time Status Last Admin Dose Admin Dexamethasone Sodium Phosphate (dexaMETHasone 4MG/ML 1ML VIAL) 4 mg ONCE ONCE IM 12/24/24 11:30 12/24/24 11:31 UNV Sodium Chloride 1,000 ml @ 0 mls/hr ONCE ONCE IV 12/24/24 10:30 12/24/24 10:31 DC Vital Signs Date Time Temp Pulse Resp B/P (MAP) Pulse Ox O2 Delivery O2 Flow Rate FiO2 12/24/24 09:43 98.4 80 20 122/50 95 Room Air* 0 21 12/24/24 09:13 97.3 54 18 113/71 96 Room Air 0 DX & DISP Disposition: Discharge Departure Impression: Primary Impression: Sinusitis Additional Impression: Dehydration Condition: Stable Scripts Azithromycin (Azithromycin) 500 Mg Tablet 1 TAB PO DAILY for 5 Days, #5 TAB 0 Refills Prov: TIAN CARMONA MD 12/24/24 Loratadine (Loratadine) 10 Mg Tablet 1 TAB PO DAILY for allergy symptoms for 30 Days, #30 TAB 0 Refills Prov: TIAN CARMONA MD 12/24/24 Fluticasone Propionate (Flonase Nasal [place]) 50 Mcg/Actuation [place] 2 SPRAY NS DAILY for 14 Days, #16 GM 0 Refills Prov: TIAN CARMONA MD 12/24/24 Additional Instructions: You have been reviewed in the emergency department at [facility] after presenting with chest pain. After considering your history, your risk factors, your EKG and your blood test troponins, have been found to be at very low risk less than (1 in 100) of having a major adverse cardiac event (like heart attack) in the near future. In the " low risk" group, the risks of doing further tests and treatment as the inpatient outweighs the benefits. In many patients in the low risk group for the test of any sort or unnecessary, however he should discuss this further with his general practitioner who will understand the medical and personal backgrounds better. Because we have never declared you" no risk" we would suggest. 1 returning for medical review if you have further episodes of chest pain/arm pain or other concerning symptoms like dizziness, collapse, palpitations or shortness of breath. 2. Following up with your local doctor who will consider the need for further testing and will also ensure that any modifiable risk factors you may have for heart disease are optimally managed. Patient will be discharged in stable condition at the moment discharge patient states , no chest pain Referrals: SELF,REFERRAL (PCP) JHOAN GREY MD Time of Disposition: 11:14 TIAN CARMONA MD Dec 24, 2024 09:19
[2024-12-24 09:34] LABS: APPEARANCE,URINE CLEAR (CLEAR); GLUCOSE, URINE (UA) >=1000 mg/dL (NEGATIVE); LEUKOCYTE ESTERASE ,URINE NEGATIVE Leu/uL (NEGATIVE); NITRATE,URINE NEGATIVE (NEGATIVE); OCCULT BLOOD,URINE MODERATE (NEGATIVE)
[2024-12-24 09:37] LABS: ADD UA MICROSCOPIC YES
--- NOTE | 2024-12-24 09:39 | EKG ---
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[id number] Requested By: TIAN CARMONA Order Number: [id number] Reading MD: Marlon Demarco Measurements Intervals [place] Rate: 81 P: 15 ME: 165 QRS: -39 QRSD: 103 T: 91 QT: 386 QTc: 449 Interpretive Statements Sinus rhythm Left axis deviation Consider anterior infarct Compared to ECG 01/04/2024 11:26:01 Left-axis deviation now present Myocardial infarct finding now present Ventricular premature complex(es) no longer present Left anterior fascicular block no longer present Electronically Signed On 12-25-2024 05:15:28 CDT by Marlon Demarco Please click the below link to view image of tracing.
[2024-12-24 09:41] LABS: SQUAMOUS EPITHELIAL CELL,UR RARE /HPF (0-2)
[2024-12-24 09:52] LABS: IMMATURE GRANULOCYTE ABSOLUTE 0.05 K/uL (0-1); NUCLEATED RED BLOOD CELLS 0.0 % (0.0-0.19); PLATELET COUNT (AUTO) 184 K/uL (130-400); RED BLOOD CELL COUNT(AUTO) 4.92 MIL/uL (4.50-6.20); RED CELL DISTRIBUTION WIDTH 14.6 % (11.0-15.5); WHITE BLOOD COUNT (AUTO) 7.3 K/uL (4.8-10.8)
[2024-12-24 10:02] LABS: CREATININE 1.0 mg/dL (0.5-1.3); GLOMERULAR FILTR. RATE CALC 82.0 mL/min (>90); GLUCOSE,RANDOM 125.0 mg/dL (70-105); SODIUM SERUM 137.0 mmol/L (136-145); UREA NITROGEN, BLOOD 22.0 mg/dL (7-18)
[2024-12-24 10:07] LABS: CREATINE KINASE, TOTAL 391.0 U/L (21-232)
--- NOTE | 2024-12-24 10:15 | HMCIMG ---
EXAM: CR Chest, 1 View. CLINICAL HISTORY: cp COMPARISON: Radiograph dated January 04, 2024 FINDINGS: LUNGS: The lungs show no infiltrate or other acute finding. Mild bibasilar atelectasis. PLEURAL SPACES: No pleural effusion or pneumothorax. MEDIASTINUM: Cardiac size and mediastinal contours within normal limits. BONES: No aggressive appearing osseous lesion seen. IMPRESSION: No acute cardiopulmonary pathology is evident. /[place]
[2024-12-24 10:31] LABS: SARS-CoV-2, RNA, NAAT NEGATIVE SARS CoV-2 (NEGATIVE)
[2024-12-24 10:52] LABS: INFLUENZA TYPE A Negative For Type A (NEGATIVE); INFLUENZA TYPE B Negative For Type B (NEGATIVE)
[2024-12-24 11:00] VITALS: BP 133/84; PULSE 88; RESP 20; TEMP 98.5; O2SAT 99
[2024-12-24] MEDS ORDERED: FLUT16H NS (11:17)
[2024-12-24] MEDS ORDERED: LORA10TA7 PO (11:17)
[2024-12-24] MEDS ORDERED: AZIT500T4 PO (11:17)
[2024-12-24] MEDS: 0.9%NACL 1000ML 1,000 ML IV ONE (11:29)
== END 2024-12-24 11:32 | disposition home or self-care (01) ==
LOC: EDH 09:11
DX: J32.9 Chronic sinusitis, unspecified (principal); E86.0 Dehydration; J44.89 Other specified chronic obstructive pulmonary disease; Z79.82 Long term (current) use of aspirin; Z79.84 Long term (current) use of oral hypoglycemic drugs; Z79.899 Other long term (current) drug therapy; Z88.0 Allergy status to penicillin; Z91.030 Bee allergy status; Z20.822 Contact with and (suspected) exposure to COVID-19
CPT/HCPCS: 99285; 71045; 87635; 82550; 83735; 84484; 80048; 85025; 87804 ×2; 81001; 36415; 96372; 93005; J1100

== ENCOUNTER 2025-02-09 13:07 | Emergency (ER) | payer MEDICARE ==
[~2025-02-09] VITALS: Ht 180.3 cm; Wt 139.3 kg
[~2025-02-09 13:07] MED LIST changes: +AZIT500T4 PO; +FLUT16H NS; +LORA10TA7 PO
--- NOTE | 2025-02-09 13:13 | ERN ---
General Chief Complaint: Chest Pain Stated Complaint: CP Time Seen by MD: 13:08 Source: patient History of Present Illness Initial Comments Patient is a 70-year-old male coming in to be evaluated for chest pressure. Per patient earlier today she he was laying down in bed and started having chest pressure and shortness of breath. He does has a history of COPD as well as asthma. He also states that he has a history of cardiac issues no stent L no CABG. Allergies: Coded Allergies: Penicillins (Unverified Allergy, Severe, THROAT SWELLS, 10/14/20) bee pollen (Unverified Allergy, Unknown, 06/16/20) marijuana (Unverified Allergy, Unknown, 06/16/20) Home Meds Active Scripts Azithromycin (Azithromycin) 500 Mg Tablet, 1 TAB PO DAILY for 5 Days, #5 TAB 0 Refills Prov:TIAN CARMONA MD 12/24/24 Loratadine (Loratadine) 10 Mg Tablet, 1 TAB PO DAILY for allergy symptoms for 30 Days, #30 TAB 0 Refills Prov:TIAN CARMONA MD 12/24/24 Fluticasone Propionate (Flonase Nasal [place]) 50 Mcg/Actuation [place], 2 SPRAY NS DAILY for 14 Days, #16 GM 0 Refills Prov:TIAN CARMONA MD 12/24/24 Cyclobenzaprine HCl (Flexeril) 10 Mg Tab, 10 MG PO BIDAC, #60 TAB Prov:MARLON MONROY 12/02/20 Naproxen (Naprosyn) 500 Mg Tablet, 500 MG PO BIDPC, #60 TAB Prov:MARLON MONROY 12/02/20 Ondansetron HCl (Zofran) 4 Mg Tablet, 4 MG PO TID PRN for NAUSEA for 3 Days, #10 TAB Prov:FERNANDO QUIÑONES MD 10/14/20 Dicyclomine HCl (Bentyl) 20 Mg Tab, 20 MG PO TID PRN for ABDOMINAL PAIN for 7 Da ys, #21 TAB Prov:FERNANDO QUIÑONES MD 10/14/20 Reported Medications Aspirin (Aspirin) 81 Mg Tab.chew, 81 MG PO DAILY, TAB.CHEW 01/05/24 Esomeprazole Magnesium (Esomeprazole Magnesium) 20 Mg Suspdr.pkt, 20 MG PO DAILY 01/05/24 Atorvastatin Calcium (Atorvastatin Calcium) 80 Mg Tablet, 80 MG PO DAILY, TAB 01/05/24 Metoprolol Succinate (Metoprolol Succinate) 25 Mg Tab.er.24h, 25 MG PO DAILY, TAB 01/05/24 Spironolactone (Spironolactone) 25 Mg Tablet, 25 MG PO DAILY, TAB 01/05/24 Empagliflozin (Jardiance) 10 Mg Tablet, 10 MG PO DAILY, TAB 01/05/24 Buspirone HCl (Buspirone HCl) 10 Mg Tablet, 10 MG PO BID, TAB 01/05/24 Sacubitril/Valsartan (Entresto 97 mg-103 mg Tablet) 97 Mg-103 Mg Tablet, 1 EACH PO BID, TAB 01/05/24 Ranolazine (Ranolazine ER) 500 Mg Tab.er.12h, 500 MG PO [id number], TAB 01/05/24 Duloxetine HCl (Duloxetine HCl) 60 Mg Capsule.dr, 60 MG PO DAILY, CAP 01/05/24 Past Medical History Past Medical History: Heart Disease, Hypertension Medical History Other: SLEEP APNEA, CARDIAC HX Past Surgical History: None Surgical History Other: HERNIA, Social History Social History: Negative, Lives with family ROS Dictation CONSTITUTIONAL: No chills, no fever, no weakness, no diaphoresis, no malaise. HEAD/FACE: No signs of trauma. EENT: No eye pain, no blurred vision, no tearing, no double vision, no ear pain, no ear discharge, no nose pain, no nasal congestion, no throat pain, no throat swelling, no mouth pain. RESPIRATORY: No cough, no orthopnea, SOB, no stridor, no wheezing. CARDIOVASCULAR: chest pain, no edema, no palpitations, no syncope. GASTROINTESTINAL/ABDOMINAL: No abdominal pain, no constipation, no diarrhea, no nausea, no vomiting. GENITOURINARY: No abnormal discharge, no dysuria, no frequent urination, no hematuria. No complaints of pain in the genitals. MUSCULOSKELETAL: No back pain, no gout, no joint pain, no joint swelling, no muscle pain, no muscle stiffness, no neck pain. INTEGUMENTARY: No change in color, no change in hair/nails, no dryness, no lesion, no lumps, no rash. NEUROLOGICAL/PSYCH: No anxiety, not depressed, no emotional problem, no headache, no numbness, no pre-existing deficit, no history of seizures, no tremors, no weakness. HEMATOLOGIC/LYMPHATIC: Not anemic, no history of blood clots, no apparent bleeding, no bruising, glands not swollen. All Systems Negative, Except as Noted. Physical Exam Physical Exam Dictation VITAL SIGNS: Reviewed. GENERAL APPEARANCE: Alert, oriented x3, no acute distress, obese. HEAD AND FACE: Non-traumatic. EYES: PERRL, pink conjunctivas, eyelid no trauma, anterior chamber clear. EARS: Pinnas intact and no signs of trauma or erythema. Ear canals clear and no discharge. TMs no erythema. NOSE: No discharge, no bleeding. OROPHARYNX: Mouth normal, teeth no caries, tongue pink. Pharynx clear, no erythema. Tonsils no exudates, no abscesses noted. Mucous membrane moist. NECK: Supple, non-tender, no thyromegaly, no masses, no JVD, no bruits. BREAST: Deferred. CHEST: No tenderness, no crepitus, no paradoxical movement, no retractions. LUNGS: Clear, well-ventilated, symmetric, no rales, no wheezing, no rhonchi, no stridor, good breath sounds bilaterally. HEART: Regular rate, regular rhythm, no murmur, no gallops. VASCULAR: No peripheral edema. ABDOMEN: Soft, positive bowel sounds, nondistended, no guarding, nontender, no rebound, no masses no hepatomegaly, no splenomegaly, no Bartholomew's sign, no hernias. RECTAL: Deferred. GENITAL: Deferred. NEUROLOGICAL: Normal speech, gross motor function intact, gross sensory function intact. MUSCULOSKELETAL: Neck nontender, full range of motion, back nontender, full range of motion. EXTREMITIES: Nontender, full range of motion. SKIN: Color pink, dry, no turgor, no rash, no lacerations, no abrasions, no contusions. LYMPHATICS: Deferred. Results Laboratory and Microbiology Lab and Micro Result Laboratory Tests Test 02/09/25 13:37 02/09/25 14:25 02/09/25 14:30 02/09/25 15:43 White Blood Count 12.3 K/uL (4.8-10.8) H Red Blood Count 4.86 MIL/uL (4.50-6.20) Hemoglobin 15.1 g/dL (14.0-18.0) Hematocrit 45.7 % (42-54) Mean Corpuscular Volume 94.0 fL (79-99) Mean Corpuscular Hemoglobin 31.1 pg (27.0-33.0) Mean Corpuscular Hemoglobin Concent 33.0 g/dL (32.0-36.0) Red Cell Distribution Width 14.9 % (11.0-15.5) Platelet Count 228 K/uL (130-400) Mean Platelet Volume 8.8 fL (7.5-10.5) Immature Granulocyte % (Auto) 1.0 % (0-1) Neutrophils (%) (Auto) 85.5 % (40.0-77.0) H Lymphocytes (%) (Auto) 9.2 % (21.0-51.0) L Monocytes (%) (Auto) 4.0 % (3.0-13.0) Eosinophils (%) (Auto) 0.0 % (0.0-8.0) Basophils (%) (Auto) 0.3 % (0.0-5.0) Neutrophils # (Auto) 10.1 K/uL (1.8-7.7) H Lymphocytes # (Auto) 1.1 K/uL (1.0-4.8) Monocytes # (Auto) 0.5 K/uL (0.1-1.0) Eosinophils # (Auto) 0.00 K/uL (0.00-0.70) Basophils # (Auto) 0.03 K/uL (0.00-0.20) Absolute Immature Granulocyte (auto 0.12 K/uL (0-1) Nucleated Red Blood Cells 0.0 % (0.0-0.19) White Cell Morphology Comment See comments Sodium Level 142 mmol/L (136-145) Potassium Level 4.1 mmol/L (3.5-5.1) Chloride Level 106 mmol/L (101-111) Carbon Dioxide Level 26 mmol/L (21-32) Blood Urea Nitrogen 16 mg/dL (7-18) Creatinine 1.0 mg/dL (0.5-1.3) Glomerular Filtration Rate Calc 81 mL/min (>90) Random Glucose 130 mg/dL (70-105) H Total Calcium 8.2 mg/dL (8.5-10.1) L Magnesium Level 2.40 mg/dL (1.80-2.40) Total Creatine Kinase 305 U/L (21-232) #H Troponin I High Sensitivity 19 ng/L (4-75) 16 ng/L (4-75) B-Type Natriuretic Peptide 129 pg/mL (0-100) H Urine Color LIGHT-YELLOW (YELLOW) Urine Appearance CLEAR (CLEAR) Urine pH 7.0 (5.0-8.0) Urine Specific [place] 1.011 (1.001-1.031) Urine Protein NEGATIVE mg/dL (NEGATIVE) Urine Glucose (UA) >=1000 mg/dL (NEGATIVE) H Urine Ketones NEGATIVE mg/dL (NEGATIVE) Urine Occult Blood NEGATIVE (NEGATIVE) Urine Nitrate NEGATIVE (NEGATIVE) Urine Bilirubin NEGATIVE mg/dL (NEGATIVE) Urine Urobilinogen 0.2 mg/dL (0.2-1.0) Urine Leukocyte Esterase NEGATIVE Randa/uL Urine RBC 2-5 /HPF (0-1) H Urine WBC 0-1 /HPF (0-1) Urine Bacteria None /HPF (None Seen) Blood Gas Specimen Type Arterial Arterial Blood pH 7.461 (7.350-7.450) Arterial Blood Partial Pressure CO2 33 mmHg (35-48) L Arterial Blood Partial Pressure O2 89.2 mmHg (83.0-108.0) Arterial Blood HCO3 23.1 mmol/L (21.0-28.0) Arterial Blood Oxygen Saturation 97.5 % (94.0-98.0) Arterial Blood Base Excess 0.1 mmol/L (-2.0-3.0) Hemoglobin (Blood Gas) 15.3 g/dL (13.5-17.5) Sodium (Blood Gas) 137 MMOL/L (136-145) Bedside Potassium (Blood Gas) 4.2 MMOL/L (3.4-4.5) Bedside Chloride (Blood Gas) 105 MMOL/L (98-107) Bedside Glucose (Blood Gas) 124 MG/DL (65-95) H Bedside Ionized Calcium (Blood Gas) 1.14 MMOL/L (1.15-1.33) L Bedside Lactic Acid (Blood Gas) 1.24 MMOL/L (0.36-0.75) H Blood Gas Temperature 37.0 CELSIUS (35.5-37.0) Blood Gas Flow-by 2.00 L/min (0.00-15.00) Blood Gas Vent Mode NC (ROOM AIR) FiO2 28.0 % Blood Gas Specimen Comment RBFRANK Labs Reviewed?: Yes EKG/XRAY/US/CT/MRI EKG Comment [id number] time 1:03 p.m. Ventricular rate [address] wave elevation or depression X-RAY Comment IMAGING REPORT Signed PATIENT: KAREN GALVIN MR#: [id number] : 1955 SEX: M AGE: 70 LOCATION: [facility] ORDER 131 STATUS: REG ER REPORT#: [id number] SERVICE 09 REASON: cp ORDERING PHYSICIAN: TIAN CARMONA MD PROCEDURE: CXR1VW - CHEST 1VW EXAM: CR Chest, 2 View. CLINICAL HISTORY: cp COMPARISON: 12/24/24 FINDINGS: LUNGS: There is no mass, infiltrate, or acute pulmonary abnormality. PLEURAL SPACES: No pleural effusion or pneumothorax. MEDIASTINUM: Cardiac size and mediastinal contours within normal limits. BONES: No acute osseous abnormality. IMPRESSION: No acute cardiopulmonary pathology is evident. /[place] DICTATED BY: ALBA PEGUERO MD DATE: 02/09/251617 ELECTRONICALLY SIGNED BY: ALBA PEGUERO MD DATE: 02/09/251617 [facility] MDM: Differential diagnosis: Apnea, URI, history of COPD, history of asthma, Rationale: Tests considered and ordered secondary to shared decision making include: Previous outside records reviewed: Old ER visits. Risk of complication and/or morbidity or mortality of patient management: None Medications-Per medication reconciliation Need for hospitalization: Patient does not meet criteria for hospitalization. Need for emergency major/minor surgery: No 70-year-old gentleman coming in to be evaluated after he had a episode worse states he was frozen could not move his lower extremity and upper extremity bilateral. That has lasted for a moment and came to. Patient does has a history of sleep apnea long with the as he states that then nebulized treatments COPD. Throughout ER visit has been has been stable cardiac workup including chest x-ray was negative for acute findings. Patient did received breathing treatment states he feels much better will be discharged in stable condition with diagnosis of URI with a history of sleep apnea. ED Course Orders Procedure Category Date Status Time Cbc With Differential LAB 02/09/25 Complete 13:10 Chest 1vw RAD 02/09/25 Resulted 13:10 12 Lead Ekg Tracing- EKG 02/09/25 Complete Technical 13:10 Magnesium LAB 02/09/25 Complete 13:10 Creatine Kinase, Total LAB 02/09/25 Complete 13:10 Troponin I High LAB 02/09/25 Complete Sensitivity 13:10 Urinalysis Profile LAB 02/09/25 Complete 13:10 Basic Metabolic Panel LAB 02/09/25 Complete 13:10 B-Type Natriuretic LAB 02/09/25 Complete Peptide 13:10 Arterial Blood Gas + RT 02/09/25 Transmitted 13:59 Arterial Blood Gas LAB 02/09/25 Complete Arterial + 14:30 Ipratropium/Albuterol PHA 02/09/25 Complete Neb (Duoneb) 14:36 Ipratropium/Albuterol PHA 02/09/25 Complete Neb (Duoneb) 15:00 Troponin I High LAB 02/09/25 Complete Sensitivity 15:32 12 Lead Ekg Tracing- EKG 02/09/25 Logged Technical 16:18 Current Medications Medications (Trade) Dose Ordered Sig/Shavonne Route PRN Reason Start Time Stop Time Status Last Admin Dose Admin Albuterol (DUOneb) 1 udvial STK-MED ONCE IH 02/09/25 14:36 02/09/25 14:36 DC Albuterol (DUOneb) 2 udvial ONCE ONCE 02/09/25 15:00 02/09/25 15:01 DC 02/09/25 14:50 Vital Signs Date Time Temp Pulse Resp B/P (MAP) Pulse Ox O2 Delivery O2 Flow Rate FiO2 02/09/25 14:51 78 18 02/09/25 14:24 98.6 74 20 164/80 97 Room Air* 0 21 02/09/25 13:13 98.6 76 20 174/84 97 Room Air* 0 21 02/09/25 13:08 98.8 78 20 174/84 97 0 DX & DISP Disposition: Discharge Departure Impression: Primary Impression: URI (upper respiratory infection) Additional Impressions: History of sleep apnea, History of COPD Condition: Stable Additional Instructions: FOLLOW-UP WITH PRIMARY CARE PROVIDER IN 1 TO 2 DAYS. TAKE MEDICATIONS DIRECTED HERE IN THE EMERGENCY ROOM. OKAY TO CONTINUE HOME MEDICATIONS UNLESS OTHERWISE DISCUSSED DURING YOUR VISIT IN THE EMERGENCY ROOM TODAY. RETURN TO YOUR NEAREST EMERGENCY ROOM IF SYMPTOMS WORSEN OR IF THERE IS NO IMPROVEMENT. CALL 911 IF YOU NEED IMMEDIATE ASSISTANCE. TAKE TYLENOL [id number] NEEDED AND IF NO CONTRAINDICATIONS ARE PRESENT. INCREASE ORAL HYDRATION. A WOUND CULTURE OR URINE CULTURE WAS ORDERED HERE IN THE EMERGENCY ROOM DEPARTMENT PLEASE FOLLOW-UP WITH PRIMARY CARE PROVIDER AND ADVISE THEM TO GET REPORTS FROM OUR FACILITY. IF YOU HAD ANY HAYDEE WRAP/SPLINTS THAT WERE APPLIED HERE, PLEASE DO NOT REMOVE THEM UNTIL YOU SEE YOUR PRIMARY CARE OR SPECIALTY. Referrals: Referrals: DAFNE SOMERS MD (PCP) Time of Disposition: 16:28 TIAN CARMONA MD Feb 09, 2025 13:13
[2025-02-09 13:41] LABS: PLATELET COUNT (AUTO) 228 K/uL (130-400); RED BLOOD CELL COUNT(AUTO) 4.86 MIL/uL (4.50-6.20); RED CELL DISTRIBUTION WIDTH 14.9 % (11.0-15.5); WHITE BLOOD COUNT (AUTO) 12.3 K/uL (4.8-10.8)
[2025-02-09 13:51] LABS: CREATININE 1.0 mg/dL (0.5-1.3); GLOMERULAR FILTR. RATE CALC 81.0 mL/min (>90); GLUCOSE,RANDOM 130.0 mg/dL (70-105); SODIUM SERUM 142.0 mmol/L (136-145); UREA NITROGEN, BLOOD 16.0 mg/dL (7-18)
[2025-02-09 13:56] LABS: CREATINE KINASE, TOTAL 305.0 U/L (21-232)
--- NOTE | 2025-02-09 14:16 | NUR ---
DR CARMONA COLLECTED FLUID FROM PTS JOINT. IT WAS PLACED INTO A STERILE CUP (PER LAB RECOMMENDATION), LABELED AND SENT UP TO LAB.
[2025-02-09 14:30] LABS: IMMATURE GRANULOCYTE ABSOLUTE 0.12 K/uL (0-1)
[2025-02-09 14:31] LABS: ABG BASE EXCESS 0.1 mmol/L (-2.0-3.0); ABG HCO3 23.1 mmol/L (21.0-28.0); ABG OXYGEN SATURATION 97.5 % (94.0-98.0); ABG PCO2 33 mmHg (35-48); ABG PH 7.461 (7.350-7.450); CARBON MONOXIDE 1.1 % (0.5-1.5); DEVICE COMMENT RBFRANK; PO2, ARTERIAL BG 89.2 mmHg (83.0-108.0); TEMPERATURE, CELSIUS BG 37.0 CELSIUS (35.5-37.0); VENT MODE, BG NC (ROOM AIR)
[2025-02-09 14:31] LABS: NUCLEATED RED BLOOD CELLS 0.0 % (0.0-0.19)
--- NOTE | 2025-02-09 14:34 | EKG ---
[facility] Test Date: 2025-02-09 Test Time: 13:03:09 Pat Name: KAREN GALVIN Department: ED Room: Gender: M Company Marker: [facility] [place] [facility] [place] : 1955 Requested By: TIAN CARMONA Order Number: [id number] Reading MD: Alison Giles Measurements Intervals [place] Rate: 81 P: 10 DC: 168 QRS: -41 QRSD: 108 T: 85 QT: 394 QTc: 458 Interpretive Statements Sinus rhythm Ventricular trigeminy Left anterior fascicular block Compared to ECG 12/24/2024 09:35:44 Ventricular premature complex(es) now present Left anterior fascicular block now present Left-axis deviation no longer present Myocardial infarct finding no longer present Electronically Signed On 02-11-2025 10:17:45 CDT by Alison Giles Please click the below link to view image of tracing.
[2025-02-09 14:47] LABS: APPEARANCE,URINE CLEAR (CLEAR); GLUCOSE, URINE (UA) >=1000 mg/dL (NEGATIVE); LEUKOCYTE ESTERASE ,URINE NEGATIVE Leu/uL (NEGATIVE); NITRATE,URINE NEGATIVE (NEGATIVE); OCCULT BLOOD,URINE NEGATIVE (NEGATIVE)
[2025-02-09 14:48] LABS: ADD UA MICROSCOPIC YES
[2025-02-09 14:51] VITALS: PULSE 78; RESP 18
--- NOTE | 2025-02-09 15:19 | HMCIMG ---
EXAM: CR Chest, 2 View. CLINICAL HISTORY: cp COMPARISON: 12/24/24 FINDINGS: LUNGS: There is no mass, infiltrate, or acute pulmonary abnormality. PLEURAL SPACES: No pleural effusion or pneumothorax. MEDIASTINUM: Cardiac size and mediastinal contours within normal limits. BONES: No acute osseous abnormality. IMPRESSION: No acute cardiopulmonary pathology is evident. /[place]
[2025-02-09 16:35] VITALS: BP 138/74; PULSE 74; RESP 18; TEMP 98.6; O2SAT 97
--- NOTE | 2025-02-09 16:52 | EKG ---
[facility] Test Date: 2025-02-09 Test Time: 16:16:52 Pat Name: KAREN GALVIN Department: ED Room: Gender: M Director Nicu: [id number] : 1955 Requested By: TIAN CARMONA Order Number: [id number] Reading MD: Alison Giles Measurements Intervals [place] Rate: 80 P: 7 ND: 153 QRS: -44 QRSD: 107 T: 75 QT: 405 QTc: 466 Interpretive Statements Sinus rhythm Left anterior fascicular block Low voltage, precordial leads Compared to ECG 02/09/2025 13:03:09 Low QRS voltage now present Ventricular premature complex(es) no longer present Electronically Signed On 02-11-2025 10:19:09 CDT by Alison Giles Please click the below link to view image of tracing.
== END 2025-02-09 16:38 | disposition home or self-care (01) ==
LOC: EDH 13:07
DX: J06.9 Acute upper respiratory infection, unspecified (principal); G47.30 Sleep apnea, unspecified; I11.9 Hypertensive heart disease without heart failure; J44.9 Chronic obstructive pulmonary disease, unspecified; Z79.82 Long term (current) use of aspirin; Z79.84 Long term (current) use of oral hypoglycemic drugs; Z79.899 Other long term (current) drug therapy; Z88.0 Allergy status to penicillin; Z91.030 Bee allergy status
CPT/HCPCS: 36415; 36600; 71045; 80048; 81001; 82435; 82550; 82803; 82947; 83605; 83735; 83880; 84132; 84295; 84484; 85018; 85025; 93005; 94640; 99285